=== PATIENT | male | born 1965 | race African-American/Black ===

== ENCOUNTER 2020-09-10 03:40 | Emergency (ER) | payer OTHER ==
[2020-09-10] MEDS ORDERED: methylPREDNISolone Sod Succ/PF 125 MG/2 ML VIAL ONE ×2 (04:03→06:16)
[2020-09-10] MEDS ORDERED: EPINEPHrine 1 MG/ML AMP ONE ×2 (05:12→05:33)
[2020-09-10] MEDS ORDERED: Famotidine/PF 20 mg/2ml Vial ONE (05:16)
== END 2020-09-10 10:55 | disposition short-term general hospital (02) ==
LOC: NAV ERS 03:40
DX: T78.3XXA Angioneurotic edema, initial encounter (principal); M19.90 Unspecified osteoarthritis, unspecified site; I10 Essential (primary) hypertension; E78.5 Hyperlipidemia, unspecified; Z79.899 Other long term (current) drug therapy
CPT/HCPCS: 96372; 96374; 96375; 96376; J0171; J2930; S0028